=== PATIENT | female | born 1990 | race Caucasian/White ===

== ENCOUNTER 2016-10-18 19:22 | Emergency (ER) | payer BC, OTHER ==
[2016-10-18] MEDS ORDERED: METOCLOPRAMIDE HCL INJ/PF 10 MG/2 ML SDV IV ONE (20:12)
[2016-10-18] MEDS ORDERED: NORMAL SALINE 1000 ML 1,000 ML IV PRN (20:12)
--- NOTE | 2016-10-18 20:13 | ER Document Report ---
ED Medical Screen (RME) - General Chief Complaint: Nausea/Vomiting Stated Complaint: /UNABLE TO KEEP ANYTHING DOWN Time Seen by Provider: 10/18/16 20:00 Mode of Arrival: Ambulatory Information source: Patient TRAVEL OUTSIDE OF THE [place] IN LAST 30 DAYS: No - HPI Patient complains to provider of: Nausea and vomiting Onset: Other - 3 days Notes: 10/18/16 20:13 Patient is a 25-year-old female, who is currently approximately 14 weeks , being cared for by a dynamic etching processor at this point, who presents to the emergency room complaining of 3 day history of nausea and vomiting, she did have a small amount of spotting last week, that has since resolved, she denies any fevers, no urinary symptoms, no vaginal discharge - Related Data Allergies/Adverse Reactions: No Known Allergies Allergy (Unverified 06/15/13 00:11) Past Medical History Renal/ Medical History: Denies: Hx Peritoneal Dialysis - Immunizations Hx Diphtheria, Pertussis, Tetanus Vaccination: Yes Physical Exam - Vital signs Vitals: Temp Pulse Resp BP Pulse Ox 98.8 F 103 H 16 134/80 H 100 10/18/16 19:30 10/18/16 19:30 10/18/16 19:30 10/18/16 19:30 10/18/16 19:30 Course - Vital Signs Vital signs: Temp Pulse Resp BP Pulse Ox 98.8 F 97 20 134/80 H 100 10/18/16 19:32 10/18/16 19:32 10/18/16 19:32 10/18/16 19:32 10/18/16 19:32
[2016-10-18 20:33] LABS: ABSOLUTE EOSINOPHILS # (AUTO) 0.1 10^3/uL (0.0-0.6); ABSOLUTE LYMPHOCYTES (AUTO) 1.9 10^3/uL (0.5-4.7); ABSOLUTE MONOCYTES (AUTO) 0.5 10^3/uL (0.1-1.4); ABSOLUTE NEUT (AUTO) 6.7 10^3/uL (1.7-8.2); BASOPHILS % (AUTO) 0.5 % (0-2); EOSINOPHILS % (AUTO) 0.6 % (0-6); HEMATOCRIT 36.3 % (36.0-47.0); HEMOGLOBIN 12.7 g/dL (12.0-15.5); HGB HCT DIFFERENCE 1.8; LYMPHOCYTES % (AUTO) 20.7 % (13-45); MEAN CORPUSCULAR HEMOGLOBIN 29.8 pg (27.0-33.4); MEAN CORPUSCULAR VOLUME 85 fl (80-97); MONOCYTES % (AUTO) 5.5 % (3-13); RED BLOOD COUNT 4.25 10^6/uL (3.72-5.28); RED CELL DISTRIBUTION WIDTH 12.9 % (11.5-14.0); SEGMENTED NEUTROPHILS % (AUTO) 72.7 % (42-78); WHITE BLOOD COUNT 9.2 10^3/uL (4.0-10.5)
[2016-10-18 20:52] LABS: ALANINE AMINOTRANSFERASE 35 U/L (9-52); ALBUMIN 4.4 g/dL (3.5-5.0); ALKALINE PHOSPHATASE 43 U/L (38-126); ANION GAP 12 (5-19); ASPARTATE AMINO TRANSFERASE 27 U/L (14-36); BILIRUBIN,DIRECT 0.2 mg/dL (0.0-0.4); BILIRUBIN,TOTAL 0.3 mg/dL (0.2-1.3); BLOOD UREA NITROGEN 7 mg/dL (7-20); CALCIUM 9.8 mg/dL (8.4-10.2); CARBON DIOXIDE 25 mmol/L (22-30); CHLORIDE 101 mmol/L (98-107); CREATININE RESULT 0.49 mg/dL (0.52-1.25); GLUCOSE 83 mg/dL (75-110); LIPASE 58.4 U/L (23-300); TOTAL PROTEIN 7.4 g/dL (6.3-8.2)
[2016-10-18 21:03] LABS: APPEARANCE,URINE CLEAR; BILIRUBIN,URINE NEGATIVE (NEGATIVE); GLUCOSE, URINE NEGATIVE (NEGATIVE); KETONES,URINE 20 mg/dL (NEGATIVE); LEUKOCYTE ESTERASE,URINE NEGATIVE (NEGATIVE); NITRITE,URINE NEGATIVE (NEGATIVE); PROTEIN,URINE NEGATIVE (NEGATIVE); URINE SPECIFIC GRAVITY 1.002; UROBILINOGEN,URINE NEGATIVE mg/dL (<2.0)
[2016-10-19 00:20] VITALS: BP 102/61
--- NOTE | 2016-10-19 00:21 | ER Document Report ---
ED General - General Chief Complaint: Nausea/Vomiting Stated Complaint: /UNABLE TO KEEP ANYTHING DOWN Time Seen by Provider: 10/18/16 20:00 Mode of Arrival: Ambulatory Notes: Patient is a 25-year-old female at 14 weeks by LMP who presents with 2 days of acutely worsens nausea and vomiting with difficulty tolerating oral intake. Patient states that she has had persistent nausea during this but it became acutely worse 2 days ago. She has not tried anything to relieve her symptoms. She has not noted anything other than attempting to eat worsens her symptoms. She has not seen an JOINER HELPER regarding today's concerns. No history of similar symptoms in this to this degree of intensity. She denies any abdominal pain. States that she has had a small amount of vaginal spotting several days ago but that this is not present today. TRAVEL OUTSIDE OF THE [place] IN LAST 30 DAYS: No - Related Data Allergies/Adverse Reactions: No Known Allergies Allergy (Unverified 06/15/13 00:11) Past Medical History - General Information source: Patient - Social History Smoking Status: Former Smoker Chew tobacco use (# tins/day): No Frequency of alcohol use: None Drug Abuse: None Lives with: Spouse/Significant other Family History: Reviewed & Not Pertinent Patient has suicidal ideation: No Patient has homicidal ideation: No Renal/ Medical History: Denies: Hx Peritoneal Dialysis Surgical Hx: Negative - Immunizations Hx Diphtheria, Pertussis, Tetanus Vaccination: Yes Review of Systems - Review of Systems Notes: Constitutional: Negative for fever. HENT: Negative for sore throat. Eyes: Negative for visual changes. Cardiovascular: Negative for chest pain. Respiratory: Negative for shortness of breath. Gastrointestinal: Negative for abdominal pain, positive for nausea and vomiting Genitourinary: Negative for dysuria. Musculoskeletal: Negative for back pain. Skin: Negative for rash. Neurological: Negative for headaches, weakness or numbness. 10 point ROS negative except as marked above and in HPI. Physical Exam - Vital signs Vitals: Temp Pulse Resp BP Pulse Ox 98.8 F 103 H 16 134/80 H 100 10/18/16 19:30 10/18/16 19:30 10/18/16 19:30 10/18/16 19:30 10/18/16 19:30 Interpretation: Tachycardic Notes: PHYSICAL EXAMINATION: GENERAL: Well-appearing, well-nourished and in no acute distress. HEAD: Atraumatic, normocephalic. EYES: Pupils equal round and reactive to light, extraocular movements intact, sclera anicteric, conjunctiva are normal. ENT: nares patent, oropharynx clear without exudates. Moderately dry mucous membranes. NECK: Normal range of motion, supple without lymphadenopathy LUNGS: Breath sounds clear to auscultation bilaterally and equal. No wheezes rales or rhonchi. HEART: Regular rate and rhythm without murmurs ABDOMEN: Soft, nontender, normoactive bowel sounds. No guarding, no rebound. No masses appreciated. EXTREMITIES: Normal range of motion, no pitting or edema. No cyanosis. NEUROLOGICAL: No focal neurological deficits. Moves all extremities spontaneously and on command. PSYCH: Normal mood, normal affect. SKIN: Warm, Dry, normal turgor, no rashes or lesions noted. Course - Re-evaluation Re-evalutation: 10/19/16 00:03 Patient presents with persistent vomiting during . Vitals at time of arrival unremarkable without tachycardia or hypotension. Laboratories reveal a normal creatinine and no evidence of significant dehydration. Patient was able to tolerate oral intake here in the emergency department. IV fluids were provided. Bedside ultrasound shows appropriate heart rate for gestational age with active movement. No vaginal bleeding or discharge. Based on abdominal exam, vitals and history I do not suspect an acute appendicitis, cholestasis of , acute cholecystitis, pancreatitis, or bowel obstruction. Patient will be started on a combination of doxylamine and vitamin B6. At this time will discharge with return precautions and follow-up recommendations. Verbal discharge instructions given a the bedside and opportunity for questions given. Medication warnings reviewed. Patient is in agreement with this plan and has verbalized understanding of return precautions and the need for primary care follow-up in the next 24-72 hours. - Vital Signs Vital signs: Temp Pulse Resp BP Pulse Ox 98.8 F 83 20 102/61 100 10/18/16 19:32 10/19/16 00:19 10/19/16 00:19 10/19/16 00:19 10/19/16 00:19 - Laboratory Result Diagrams: 10/18/16 20:14 10/18/16 20:14 Laboratory results interpreted by me: 10/18/16 10/18/16 10/18/16 20:14 20:14 20:39 Creatinine 0.49 L Beta HCG, Quant 403970.00 H Urine Ketones 20 H Discharge - Discharge Clinical Impression: Vomiting during Condition: Good Disposition: HOME, SELF-CARE Additional Instructions: You have been seen for vomiting during . You should continue to drink plenty of water and consider taking a solution such as Pedialyte if your having difficulty eating food. Please return if you become unable to drink any fluids for more than 12 hours, urinate less than twice a day, pass out, or have any other symptoms that are concerning to you. For nausea and vomiting during I recommend: Start with 10-12.5 mg of pyridoxine (vitamin B6) three times a day for 2 days. If not fully effective, Increase to 12.5 mg of pyridoxine four times a day for 2 days. If not fully effective, Increase to 25 mg of pyridoxine three times a day for 2 days. If not fully effective, Continue 25 mg pyridoxine 3 times a day, and add 12.5 mg of doxylamine before bedtime each day for 2 days. If not fully effective, Continue 25 mg pyridoxine 3 times a day, and take 12.5 mg of doxylamine twice a day. If not fully effective, Continue 25 mg pyridoxine 3 times a day, and take 12.5 mg of doxylamine three times a day. If not fully effective, Continue 25 mg pyridoxine 3 times a day, and 12.5 mg of doxylamine 3 times a day , while adding Emetrol, one to two tablespoons (15-30 cc) taken once or twice a day as needed. (Emetrol is an [id number] mixture of sugar syrups and phosphoric acid [phosphorylated carbohydrate solution]) that acts by soothing the actual wall of the gastrointestinal tract). If not fully effective, Consult with your doctor.
== END 2016-10-19 00:21 | disposition home or self-care (01) ==
LOC: ER 19:22
DX: R11.2 Nausea with vomiting, unspecified (principal); Z3A.14 14 weeks gestation of pregnancy; Z87.891 Personal history of nicotine dependence
CPT/HCPCS: 99283; 96361; 96374; 36415; 87086; 84702; 83690; 85025; 80053; 81001; J2765; J7030